=== PATIENT | male | born 1980 | race Caucasian/White ===

== ENCOUNTER 2024-07-10 12:44 | Outpatient (CLI) | payer BC, SELFPAY ==
--- NOTE | 2024-07-10 12:55 | ECHO_ITS ---
Patient Info Name: Sacha Clinton Age: 44 years : 1980 Gender: Male Ht: 78 in Wt: 250 lbs BSA: 2.51 m2 HR: 73 bpm BP: 138 / 76 mmHg Heart Rhythm: Sinus Rhythm Technical Quality: Good Exam Date: 07/10/2024 1:06 PM Exam Location: Echo Lab Patient Status: Outpatient Admit Date: 07/10/2024 Staff Ordering Physician: Lisandro Chou DO Gardener: Marlene Pringle RDCS Attending Provider: Lisandro Chou DO Referring Physician: José Antonio MULLIGAN; Exam Type: CA echo doppler color flow Study Info Indications I34.1 - Nonrheumatic mitral (valve) prolapse Complete two-dimensional, color flow and Doppler transthoracic echocardiogram is performed. Strain analysis performed. Summary 1. Complete two-dimensional, color flow and Doppler transthoracic echocardiogram is performed. 2. Left ventricular chamber dimension is normal. 3. Left ventricular systolic function is normal, estimated at 60-65%. 4. The left ventricular diastolic function is normal. 5. E/e' 8 is minimally elevated. 6. Global longitudinal strain is normal at -18.3%. 7. Left atrial chamber dimension is mildly enlarged. 8. There is trace tricuspid valve regurgitation. 9. No pulmonary hypertension, estimated pulmonary arterial systolic pressure is 24 mmHg. 10. There is trace pulmonic regurgitation. Left Ventricle E/e' 8 is minimally elevated. Global longitudinal strain is normal at -18.3%. Left ventricular chamber dimension is normal. Left ventricular systolic function is normal, estimated at 60-65%. The left ventricular diastolic function is normal. Right Ventricle Right ventricular systolic function is normal and with normal TAPSE 2.5 cm. Right ventricular chamber dimension is normal. Left Atria Left atrial chamber dimension is mildly enlarged. Right Atria Right atrial chamber dimension is normal. Aortic Valve The aortic valve is trileaflet. There is no aortic valve stenosis. There is no aortic valve regurgitation. Pulmonic Valve There is trace pulmonic regurgitation. Mitral Valve No mitral valve prolapse. There is no mitral valve stenosis. There is no mitral valve regurgitation. Tricuspid Valve There is trace tricuspid valve regurgitation. No pulmonary hypertension, estimated pulmonary arterial systolic pressure is 24 mmHg. Pericardium/Pleural There is no pericardial effusion. Inferior Vena Cava Normal inferior vena cava with >50% collapse upon inspiration consistent with normal right atrial pressure, 5 mmHg. Aorta The aortic root size at the sinus of Valsalva is normal. Left Ventricular Outflow Tract Name Value Normal LVOT 2D LVOT Diameter 2.2 cm LVOT Doppler LVOT Peak Gradient 5 mmHg LVOT Mean Gradient 3 mmHg LVOT VTI 21 cm LVOT VTI/AV VTI Ratio 0.8 LVOT Stroke Volume 79 ml LVOT CO 4.9 l/min LVOT CI 2.0 l/min/m2 Pulmonic Valve Name Value Normal RVOT Doppler RVOT Peak Gradient 2 mmHg PV Doppler PV Peak Gradient 6 mmHg Mitral Valve Name Value Normal MV Doppler MV Decel [place] 222 cm/s2 MV PHT 88 ms MV Area (PHT) 2.5 cm2 4.0-5.0 MV Diastolic Function MV E Peak Velocity 68 cm/s MV A Peak Velocity 55 cm/s MV E/A 1.2 MV Decel Time 305 ms MV Annular TDI MV E/e' (Septal) 9.3 <=8.0 MV E/e' (Lateral) 8.3 <=8.0 MV E/e' (Average) 8.8 Tricuspid Valve Name Value Normal TV Regurgitation Doppler TR Peak Velocity 217 cm/s TR Peak Gradient 19 mmHg Estimated PAP/RSVP RA Pressure 5 mmHg <=5 PA Systolic Pressure 24 mmHg <36 RV Systolic Pressure 24 mmHg <36 Aorta Name Value Normal Ascending Aorta Ao Root Diameter (MM) 3.4 cm Ao Root Diam Index (MM) 1.4 cm/m2 Aortic Valve Name Value Normal AV Doppler AV Peak Velocity 136 cm/s AV Peak Gradient 7 mmHg AV Mean Gradient 4 mmHg AV VTI 25 cm AV Area (Cont Eq VTI) 3.1 cm2 >=3.0 AV Area (Cont Eq Dk) 3.1 cm2 AV Regurgitation 2D LVOT Area 3.8 cm2 Ventricles Name Value Normal LV Dimensions 2D/MM IVS Diastolic Thickness (2D) 1.2 cm 0.6-1.0 LVID Diastole (2D) 4.8 cm 4.2-5.8 LVIW Diastolic Thickness (2D) 1.2 cm 0.6-1.0 LVID Systole (2D) 3.2 cm 2.5-4.0 LVOT Diameter 2.2 cm LV Mass (2D Cubed) 225.81 g 88.00-224.00 LV Mass Index (2D Cubed) 90 g/m2 49-115 Relative Wall Thickness (2D) 0.50 LV Fractional Shortening/Ejection Fraction 2D/MM LV Fractional Shortening (2D) 33 % 25-43 LV EF (2D Teicholz) 62 % 52-72 LV Diastolic Volume (4C MOD) 99 ml LV EF (4C MOD) 68 % LV Diastolic Volume (2C MOD) 87 ml LV EF (2C MOD) 62 % LV Diastolic Volume (BP MOD) 95 ml 62-150 LV Diastolic Volume Index (BP MOD) 38 ml/m2 34-74 LV Systolic Volume (BP MOD) 34 ml 21-61 LV Systolic Volume Index (BP MOD) 14 ml/m2 11-31 LV EF (BP MOD) 64 % 52-72 LV Diastolic Length (4C) 8.8 cm LV Systolic Length (4C) 6.7 cm LV Stroke Volume (4C MOD) 67 ml Atria Name Value Normal LA Dimensions LA Dimension (MM) 4.6 cm 3.0-4.1 LA Volume (4C A-L) 56 ml LA Volume (BP A-L) 57 ml RA Dimensions RA Area (4C) 16.5 cm2 <=18.0 EchoPAC Name Value Normal NORBERT AA peak sys SL (AWMA) 24.3 % AAS peak sys SL (AWMA) 25.0 % AI peak sys SL (AWMA) 25.3 % AL peak sys SL (AWMA) 20.4 % AP peak sys SL (AWMA) 22.0 % peak sys SL (AWMA) 21.1 % AVC (AWMA) 397 ms BA peak sys SL (AWMA) 15.1 % BAS peak sys SL (AWMA) 12.5 % BI peak sys SL (AWMA) 12.4 % BL peak sys SL (AWMA) 16.9 % BP peak sys SL (AWMA) 18.8 % BS peak sys SL (AWMA) 12.5 % G peak SL(A2C) (AWMA) 19.1 % G peak SL(A4C) (AWMA) 17.3 % G peak SL(APLAX) (AWMA) 18.6 % G peak SL(Avg) (AWMA) 18.3 % MA peak sys SL (AWMA) 19.8 % MAS peak sys SL (AWMA) 18.2 % IN peak sys SL (AWMA) 18.7 % ML peak sys SL (AWMA) 17.8 % MP peak sys SL (AWMA) 18.1 % MS peak sys SL (AWMA) 17.2 % Report Signatures
== END 2024-07-10 12:45 | disposition home or self-care (01) ==
LOC: ANHCARD 12:45
PROVIDERS: PCP Internal Medicine; Visit Provider Internal Medicine Cardiovascular Disease
DX: I34.1 Nonrheumatic mitral (valve) prolapse (principal)
CPT/HCPCS: 93306